=== PATIENT | female | born 1970 | race Caucasian/White ===

== ENCOUNTER 2017-04-12 19:10 | Emergency (ER) | payer MEDICAID, OTHER, SELFPAY ==
[~2017-04-12] VITALS: Ht 157.5 cm; Wt 75.2 kg
[2017-04-12] MEDS ORDERED: LIDOCAINE 1%, 20ML ONE (19:38)
[2017-04-12] MEDS ORDERED: OXYcodone/APAP 5/325MG TABLET ONE (19:38)
[2017-04-12] MEDS ORDERED: IBUPROFEN 200 MG TABLET ONE (19:38)
[2017-04-12] MEDS ORDERED: DIPH,PERTUSS(ACELL),TET VAC/PF 0.5 ML IM-VACC ONE ×2 (19:39→20:00)
[2017-04-12] MEDS ORDERED: IBUPROFEN 200 MG TABLET PO ONE (20:00)
[2017-04-12] MEDS ORDERED: LIDOCAINE 2%, 20ML SQ ONE (20:00)
[2017-04-12] MEDS ORDERED: OXYcodone/APAP 5/325MG TABLET PO ONE (20:00)
[2017-04-12] MEDS ORDERED: BACITRACIN ZINC OINT 500U/GM, 0.9 GM ONE ×2 (21:13)
[2017-04-12 21:42] VITALS: BP 115/90
== END 2017-04-12 21:45 | disposition home or self-care (01) ==
LOC: ED 21:20
DX: S51.812A Laceration without foreign body of left forearm, initial encounter (principal); S51.852A Open bite of left forearm, initial encounter; S61.351A Open bite of left index finger with damage to nail, initial encounter; S61.357A Open bite of left little finger with damage to nail, initial encounter; S50.11XA Contusion of right forearm, initial encounter; S50.12XA Contusion of left forearm, initial encounter; S40.021A Contusion of right upper arm, initial encounter; Z23 Encounter for immunization; W54.0XXA Bitten by dog, initial encounter; Y93.89 Activity, other specified; Y99.8 Other external cause status; Y92.89 Other specified places as the place of occurrence of the external cause
CPT/HCPCS: 90471; 90715

== ENCOUNTER 2018-02-14 22:05 | Emergency (ER) | payer MEDICAID ==
[~2018-02-14] VITALS: Ht 157.5 cm; Wt 76.9 kg
[2018-02-14 22:17] VITALS: BP 136/92
[2018-02-14 22:59] LABS: MICROSCOPIC INDICATED
[2018-02-14] MEDS ORDERED: ONDANSETRON 2MG/ML, 2ML IVPush ONE (23:00)
[2018-02-14] MEDS ORDERED: SODIUM CHLORIDE 0.9% 1,000ML IV ONE (23:00)
[2018-02-14] MEDS ORDERED: SODIUM CHLORIDE FLUSH 10ML SYR IVF ONE (23:00)
[2018-02-14] MEDS ORDERED: MORPHINE SULFATE 4 MG/ML, 1ML IVPush PRN (23:00)
[2018-02-14 23:13] LABS: CULTURE INDICATED? NO
[2018-02-14 23:21] LABS: MEAN CORPUSCULAR HEMOGLOBIN 27.6 pg (27.0-34.8); MEAN PLATELET VOLUME 8.4 fL (7.4-10.4); PLATELET COUNT 202 x10^3/uL (130-400); RED BLOOD COUNT 4.77 x10^6/uL (3.82-5.3)
[2018-02-14] MEDS ORDERED: ONDANSETRON 2MG/ML, 2ML ONE (23:25)
[2018-02-14] MEDS ORDERED: MORPHINE SULFATE 4 MG/ML, 1ML ONE (23:26)
[2018-02-14 23:30] LABS: ALANINE AMINOTRANSFERASE 29 U/L (12-78); ALBUMIN 3.4 g/dL (3.4-5.0); ANION GAP 8 mmol/L (5-15); CALCIUM 7.7 mg/dL (8.5-10.1); CHLORIDE 105 mmol/L (98-107); CREATININE 0.95 mg/dL (0.55-1.02)
[2018-02-14 23:35] LABS: ALKALINE PHOSPHATASE 114 U/L (45-117); BASOPHILS # (AUTO) 0.01 x10^3/uL (0-0.1); BASOPHILS % (AUTO) 1 % (0-1); BILIRUBIN,TOTAL 0.2 mg/dL (0.2-1.0); EOSINOPHILS % (AUTO) 0 % (1-7); LYMPHOCYTES # (AUTO) 0.79 x10^3/uL (1-3.4); LYMPHOCYTES % (AUTO) 38 % (22-44); MD SCAN; MONOCYTES # (AUTO) 0.27 x10^3/uL (0.2-0.8); MONOCYTES % (AUTO) 13 % (2-9); NEUTROPHILS # (AUTO) 1.01 x10^3/uL (1.8-6.8); NEUTROPHILS % (AUTO) 49 % (42-75); TOTAL PROTEIN 7.7 g/dL (6.4-8.2)
== END 2018-02-15 01:03 | disposition home or self-care (01) ==
LOC: ED 23:27
DX: R10.9 Unspecified abdominal pain (principal); B19.20 Unspecified viral hepatitis C without hepatic coma
CPT/HCPCS: 36415; 74176; 80053; 81001; 83690; 84703; 85025; 96361; 96374; 99285; J2405; J7030